=== PATIENT | female | born 1955 | race Caucasian/White ===

== ENCOUNTER 2016-10-24 10:01 | Emergency (ER) | payer OTHER, BC ==
--- NOTE | 2016-10-24 10:21 | EDM.PDOC ---
ED HPI GENERAL MEDICAL PROBLEM - General Chief Complaint: Upper Extremity Injury/Pain Stated Complaint: Fall, Right wrist injury Time Seen by Provider: 10/24/16 10:15 Source of Information: Reports: Patient, Family (,), Old Records ([facility] EMR. No paper hospital chart available.), Other (Friend) - History of Present Illness INITIAL COMMENTS - FREE TEXT/NARRATIVE: Patient was brought to the emergency room via private automobile by her and friend, who have been watching her at home after recent right knee surgery as below. The patient was walking on her own at about 21:45 hours yesterday evening in her home when her right knee gave out, and she landed on her right wrist and forehead with persistent 10/10 sharp right wrist pain and exacerbation of her postoperative right knee pain since that time. The patient did take her oxycodone ER at about 8 a.m. this morning with diazepam taken at 17 :15 hours yesterday prior to the above injury. Caregivers have been placing ice packs on the right wrist with persistent pain as above. The patient denies any chest pain/pressure, heart flutter, dizziness, orthostasis, orthopnea, diaphoresis, paresthesias, recent decreased exercise tolerance, or any other anginal-type symptoms. No recent history of abdominal pain, heartburn, nausea, diarrhea, melena, gross hematochezia, or any food intolerance, including fatty foods, etc.. The patient also denies any recent fever, cough, wheezing, dyspnea , etc.. No history of local signs of infection or drainage from right knee operative site. No history of loss of consciousness, change in mental status, neck/back pain, visual changes, nausea, headaches, paresthesias, neurological deficits, or other complaints or injuries Onset: Sudden Onset Date: 10/23/16 Onset Time: 21:45 Duration: Constant Location: Reports: Upper Extremity, Right, Lower Extremity, Right Quality: Reports: Same as Previous Episode, Sharp Severity: Severe Improves with: Reports: Rest Worsens with: Reports: Movement Context: Reports: Trauma (As above) Associated Symptoms: Denies: Confusion, Chest Pain, Cough, Diaphoresis, Fever/ Chills, Nausea/Vomiting, Seizure, Shortness of Breath, Syncope, Weakness, Other Treatments BIT TAPPER: Reports: Cold Therapy, Other Medication(s) (As above) Right Wrist Pain Score (Numeric/FACES): 10 Right Knee Pain Score (Numeric/FACES): 10 - Related Data Allergies Allergy/AdvReac Type Severity Reaction Status Date / Time adhesive Allergy Other Verified 10/24/16 10:17 brallobarbital Allergy Rash Verified 12/29/15 11:53 codeine Allergy Rash Verified 12/29/15 11:53 furosemide [From Lasix] Allergy Rash Verified 12/29/15 11:53 hydromorphone HCl Allergy Rash Verified 12/29/15 11:53 [From Dilaudid] Latex, Natural Rubber Allergy Rash Verified 10/24/16 10:17 methohexital [From Brevital] Allergy Cardiac Verified 10/24/16 10:17 Arrest morphine Allergy Cardiac Verified 12/29/15 11:53 Arrest pumpkin Allergy Nausea and Verified 10/24/16 10:17 Vomiting squash Allergy Nausea and Verified 10/24/16 10:17 Vomiting suture Allergy Rash Verified 10/24/16 10:17 Home Meds: Home Meds Albuterol [Ventolin HFA] 2 puff INH Q4HR PRN 11/06/14 [History] Gabapentin 1,200 mg PO BEDTIME 11/06/14 [History] Sertraline HCl 75 mg PO DAILY 11/06/14 [History] tiZANidine HCl [Tizanidine HCl] 4 mg PO BID PRN 11/06/14 [History] Apixaban [Eliquis] 2.5 mg PO BID 10/24/16 [History] Ca Carb & Gluc/Mag Ox & Gluc [Calcium Magnesium Caplet] 1 tab PO DAILY 10/24/16 [History] Diazepam [Valium] 5 mg PO Q8HR PRN 10/24/16 [History] Fluticasone Propionate [Flonase] 2 spray NASBOTH DAILY PRN 10/24/16 [History] Melatonin 10 mg PO BEDTIME 10/24/16 [History] hydrOXYzine Pamoate [Hydroxyzine Pamoate] 25 mg PO Q4HR 10/24/16 [History] oxyCODONE 10 mg PO Q4HR 10/24/16 [History] oxyCODONE ER [OxyCONTIN] 20 mg PO Q12HR 10/24/16 [History] Past Medical History HEENT History: Reports: Allergic Rhinitis, Impaired Vision, Other (See Below). Denies: Cataract, Glaucoma, Hard of Hearing, Macular Degeneration, Retinal Detachment Cardiovascular History: Reports: Afib, Arrhythmia, Heart Murmur, High Cholesterol, Hypertension, Syncope, Other (See Below). Denies: Aneurysm, Blood Clots/VTE/DVT, CAD, Heart Failure, NE, PVD Other Cardiovascular History: PVCs, PACs, history of recurrent nonspecific syncope in the 1980s and , dyslipidemia Respiratory History: Reports: Asthma, Intubation, Previous, Sleep Apnea, Other ( See Below). Denies: PE, Pneumothorax, TB Other Respiratory History: Patient has been compliant with her CPAP Gastrointestinal History: Reports: Colon Polyp, GERD, Inflammatory Bowel Disease. Denies: Celiac Disease, Chronic Constipation, Chronic Diarrhea, Gastritis, GI Bleed, Hepatitis, Irritable Bowel Syndrome, Jaundice, PUD CIRCUS TRAINER History: Reports: , Prolapsed Uterus Musculoskeletal History: Reports: Arthritis, Back Pain, Chronic, Osteoarthritis , Osteoporosis Neurological History: Reports: Concussion, Head Trauma, Neuropathy, Peripheral Psychiatric History: Reports: Addiction, Anxiety, Depression, Other (See Below) Other Psychiatric History: Chronic narcotic use - Past Surgical History Female Surgical History: Reports: Breast Implant, Other (See Below) Other Female Surgeries/Procedures: Previous breast implant rupture with replacement Musculoskeletal Surgical History: Reports: Knee Replacement, Other (See Below) Other Musculoskeletal Surgeries/Procedures:: TKA of the right knee on 10/17/16 with apparent previous multiple nonspecific knee surgeries - History Comment History Comment: Patient uncooperative with previous medical history, etc. Social & Family History - Tobacco Use Smoking Status *Q: Former Smoker (quit 16 yrs ago) Years of Tobacco use: 15 Used Tobacco, but Quit: Yes Month Tobacco Last Used: 16 years ago Second Hand Smoke Exposure: No - Alcohol Use Days Per Week of Alcohol Use: 0 Number of Drinks Per Day: 7 Total Drinks Per Week: 0 - Recreational Drug Use Recreational Drug Use: No - Living Situation & Occupation Living situation: Reports: , with Family Occupation: Unemployed Social History Comment: Currently under Workmen's Comp. injury in 2013 Review of Systems - Review of Systems Review Of Systems: See Below Constitutional: Reports: No Symptoms. Denies: Chills, Diaphoresis, Fever, Weakness Eyes: Reports: Glasses. Denies: Blurred Vision, Vision Change Ears: Reports: No Symptoms. Denies: Dizziness, Tinnitus, Bloody Discharge, Clear Discharge Nose: Reports: No Symptoms. Denies: Congestion, Epistaxis, Bloody Discharge Mouth/Throat: Reports: No Symptoms. Denies: Loose Teeth, Difficulty Swallowing Respiratory: Reports: No Symptoms. Denies: Shortness of Breath, Wheezing, Pleuritic Chest Pain, Cough Cardiovascular: Reports: No Symptoms. Denies: Chest Pain, Edema, Irregular Heart Rate, Lightheadedness, Palpitations, Syncope GI/Abdominal: Reports: No Symptoms. Denies: Abdominal Pain, Bloody Stool, Constipation, Decreased Appetite, Diarrhea, Nausea, Vomiting Genitourinary: Reports: No Symptoms. Denies: Dysuria, Hematuria, Incontinence, Painful Urination Musculoskeletal: Reports: Joint Pain (Right knee and right wrist as above), Joint Swelling (Stable postoperative right knee). Denies: Neck Pain, Shoulder Pain, Arm Pain, Back Pain, Leg Pain, Muscle Pain Skin: Reports: Bruising (Stable with current Elliquis), Wound (Stable postoperative right knee pain). Denies: Diaphoresis Neurological: Reports: Numbness (Stable peripheral neuropathy), Paresthesia, Tingling, Difficulty Walking (Secondary to recent knee surgery). Denies: Confusion, Dizziness, Headache, Seizure, Syncope, Weakness, Gait Disturbance Psychiatric: Reports: No Symptoms. Denies: Confusion, Depression, Anxiety, Agitation, Hallucinations Trauma Exam - Physical Exam Exam: See Below Exam Limited By: No Limitations General Appearance: Reports: Alert, WD/WN, Anxious (Moderate), Mild Distress Head: Reports: Atraumatic, Normocephalic. Denies: Ryan's Sign, Facial Swelling, Sinus Tenderness, Facial Tenderness, Raccoon Eyes Neck: Reports: Non-Tender, Full Range of Motion, Normal Alignment, Normal Inspection. Denies: Muscle Spasm Respiratory Exam: Reports: No Respiratory Distress, Lungs Clear, Normal Breath Sounds, No Accessory Muscle Use, Chest Non-Tender. Denies: Pleural Rub, Retractions, Flail Chest Cardiovascular: Reports: Normal Peripheral Pulses, Regular Rate, Rhythm, No Edema, No Gallop, No JVD, No Murmur, No Rub. Denies: Gallop/S3, Gallop/S4, Extra Beats (No extrasystoles at time of exam), Friction Rub GI/Abdominal: Reports: Normal Bowel Sounds, Soft, Non-Tender, No Organomegaly, No Distention, No Abnormal Bruit, No Mass, Pelvis Stable. Denies: Guarding (Female) Exam: Deferred Rectal (Female) Exam: Deferred Back: Reports: Full Range of Motion, Normal Inspection, Non-Tender. Denies: CVA Tenderness (R), CVA Tenderness (L), Muscle Spasm Extremities: No Pedal Edema, Joint Effusion (Moderate normal postoperative right knee effusion with mild surrounding postoperative ecchymosis with no petechiae, etc.), Pain with Movement (Right knee and right wrist with secondary limited range of motion, no significant right wrist deformity, and no snuffbox tenderness), Tenderness (Moderate to severe palpation pain over the right wrist , Moderate palpation pain over the right knee with no direct instability and operative site intact, clean, dry with no discharge, lymphangitis, etc. him in the local warming) Neurologic: Reports: No Motor/Sensory Deficits, Alert, Oriented x 3, Depressed Affect (Moderate to severe with additional moderate to severe anxiety component) Skin: Reports: Warm/Dry, Ecchymosis (As above). Denies: Diaphoresis, Petechiae - Norman Coma Score Best Eye Response (Pradeep): (4) Open Spontaneously Best Verbal Response (Norman): (5) Oriented Best Motor Response (Norman): (6) Obeys Commands Pradeep Total: 15 ED TRAUMA EXTREMITY PROCEDURES - Splinting Right Upper Extremity Splint site: Right wrist Pre-procedure NV status: normal Post-procedure NV status: normal Splint material: other (Short arm palmar splint using 3" x 12" padded fiberglass with additional 2 inch and 4 inch Chon wraps and cotton padding) Applied & form fitted by: provider Provider post-splint application NV check: NV status normal, good position Complications: No Course - Vital Signs Last Recorded V/S: Last Vital Signs Temp 37.2 C 10/24/16 11:21 Pulse 81 10/24/16 11:21 Resp 18 10/24/16 11:21 BP 125/43 L 10/24/16 11:21 Pulse Ox 92 L 10/24/16 11:21 Vital Signs - 24 hr 10/24/16 10/24/16 10/24/16 10:45 10:46 11:21 Temperature [ 37.6 C 37.2 C Oral] Pulse, 98 89 81 Peripheral [ Left Pulse Oximetry] Respiratory 20 20 18 Rate Blood Pressure 150/67 H 119/54 L 125/43 L [Left Upper Arm ] O2 Sat by Pulse 95 92 L Oximetry - Orders/Labs/Meds Orders: Active Orders 24 hr Category Date Time Status Cardiac Monitoring [RC] . DIRECTED Care 10/24/16 11:08 Ordered Knee 1V or 2V Rt [CR] Stat Exams 10/24/16 10:23 Taken Wrist Comp Min 3V Rt [CR] Stat Exams 10/24/16 10:21 Taken Durable Medical Equipment for Discharge [DME for Oth 10/24/16 11:13 Ordered Discharge] [COMM] Routine Durable Medical Equipment for Discharge [DME for Oth 10/24/16 11:14 Ordered Discharge] [COMM] Routine Obtain Past Medical Record [OM.PC] Routine Oth 10/24/16 10:21 Active Labs: None Meds: None - Radiology Interpretation Free Text/Narrative:: X-rays of the right knee, 2 views-portable, shows no evidence of fracture, dislocation, etc. with status post TEP with no evidence of loosening X-rays of the right wrist, complete, shows evidence of a compressed non- angulated and no and displaced distal radial fracture credit administration officer shows normal sinus rhythm in the 80s and 90s with only very occasional PACs noted Departure - Departure Time of Disposition: 11:49 Disposition: Home, Self-Care 01 Condition: good Clinical Impression: Dyslipidemia, PAC (premature atrial contraction), PVC's (premature ventricular contractions), Peptic reflux disease, Mixed anxiety depressive disorder Closed Colles' fracture Qualifiers: Encounter type: initial encounter Laterality: right Qualified Code(s): S52.531A - Colles' fracture of right radius, initial encounter for closed fracture Right knee pain Qualifiers: Chronicity: acute Qualified Code(s): M25.561 - Pain in right knee Hypertension Qualifiers: Hypertension type: essential hypertension Qualified Code(s): I10 - Essential ( primary) hypertension Osteoarthritis Qualifiers: Osteoarthritis location: multiple joints Osteoarthritis type: primary Qualified Code(s): M15.0 - Primary generalized (osteo)arthritis Atrial fibrillation Qualifiers: Atrial fibrillation type: unspecified Qualified Code(s): I48.91 - Unspecified atrial fibrillation Peripheral neuropathy Qualifiers: Peripheral neuropathy type: polyneuropathy, other Qualified Code(s): G62.89 - Other specified polyneuropathies Sleep apnea Qualifiers: Sleep apnea type: unspecified type Qualified Code(s): G47.30 - Sleep apnea, unspecified - Discharge Information Instructions: Cast or Splint Care, [id number], Wrist Fracture Treated With Immobilization, [id number] Forms: ED Department Discharge Additional Instructions: 1. Followup with the PA at the orthopedic clinic at [facility] as already scheduled on 10/31. Recommend repeat x-rays of your right wrist at that time with probable short arm cast placement 2. Tylenol 650 mg by mouth every 4 hours when necessary as directed. Note to the maximum dose of 4000 mg per day, including acetaminophen content in your current narcotic medications 3. Wear your short arm splint at all times with hand elevation, ice packs, etc. as directed. May use sling as needed 4. Continue strict fall precautions with recommended ambulation with assist - Problem List & Annotations (1) Closed Colles' fracture SNOMED Code(s): 625372826 Code(s): S52.539A - COLLES' FRACTURE OF UNSP RADIUS, INIT FOR CLOS FX Status: Acute Priority: High Onset Date: 10/23/16 Annotation/Comment:: Patient placed in a short arm palmar splint as above with close followup appointment with the orthopedic clinic at [facility] with the patient already having an appointment with the PA in that clinic at 11 a.m. on with orthopedic surgical followup scheduled for 11/27/16. The patient recently had right knee surgery as above with this surgery related to a previous Worker's Compensation injury in 2012 by her history. She is stating that she wishes to claim her wrist fracture also as a Worker's Compensation injury, since her right knee gave out causing her to fall as above. Workmen's Compensation forms were completed, although the patient and her were advised that this injury may not qualify for Workmen's Compensation. Splint care, activity restrictions, etc. extensively discussed. The patient is already on significant narcotics with chronic use and probable addiction as above. Continue to observe closely by her regular providers and orthopedic surgeon. Qualifiers: Encounter type: initial encounter Laterality: right Qualified Code(s): S52.531A - Colles' fracture of right radius, initial encounter for closed fracture (2) Right knee pain SNOMED Code(s): 33778583 Code(s): M25.561 - PAIN IN RIGHT KNEE Status: Acute Priority: High Annotation/Comment:: No evidence of significant injury or exacerbation of her chronic postoperative knee pain with surgery one week ago as above. Continue strict fall precautions the patient already having a walker Qualifiers: Chronicity: acute Qualified Code(s): M25.561 - Pain in right knee (3) Osteoarthritis SNOMED Code(s): 018201791 Code(s): M19.90 - UNSPECIFIED OSTEOARTHRITIS, UNSPECIFIED SITE Status: Chronic Priority: Medium Annotation/Comment:: Otherwise stable by history Qualifiers: Osteoarthritis location: multiple joints Osteoarthritis type: primary Qualified Code(s): M15.0 - Primary generalized (osteo)arthritis (4) Atrial fibrillation SNOMED Code(s): 97638222 Code(s): I48.91 - UNSPECIFIED ATRIAL FIBRILLATION Status: Chronic Priority: Medium Annotation/Comment:: No recent chest pain or anginal type symptoms with patient compliant with current Eliquis Qualifiers: Atrial fibrillation type: unspecified Qualified Code(s): I48.91 - Unspecified atrial fibrillation (5) Dyslipidemia SNOMED Code(s): 556530990 Code(s): E78.5 - HYPERLIPIDEMIA, UNSPECIFIED Status: Chronic Priority: Medium Annotation/Comment:: Known dyslipidemia with no current medical therapy (6) Hypertension SNOMED Code(s): 38524873 Code(s): I10 - ESSENTIAL (PRIMARY) HYPERTENSION Status: Chronic Priority : Medium Annotation/Comment:: Blood pressures under good control in the emergency room Qualifiers: Hypertension type: essential hypertension Qualified Code(s): I10 - Essential (primary) hypertension (7) Mixed anxiety depressive disorder SNOMED Code(s): 270629177 Code(s): F41.8 - OTHER SPECIFIED ANXIETY DISORDERS Status: Chronic Priority: Medium Annotation/Comment:: Her anxiety depression disorder is currently under extremely poor control. Continue to observe closely by her providers. Note narcotic addiction as above with additional diazepam use, etc. Patient was extremely confrontational during this visit making her care and previous medical history, etc. somewhat difficult (8) PAC (premature atrial contraction) SNOMED Code(s): 466876682 Code(s): I49.1 - ATRIAL PREMATURE DEPOLARIZATION Status: Chronic Priority : Medium Annotation/Comment:: Very occasional by today's respiratory tech. Note nonsymptomatic (9) PVC's (premature ventricular contractions) SNOMED Code(s): 42669651 Code(s): I49.3 - VENTRICULAR PREMATURE DEPOLARIZATION Status: Chronic Priority: Medium Annotation/Comment:: Nonsymptomatic (10) Peptic reflux disease SNOMED Code(s): 33304179 Code(s): K21.9 - GASTRO-ESOPHAGEAL REFLUX DISEASE WITHOUT ESOPHAGITIS Status: Chronic Priority: Medium Annotation/Comment:: Stable by history (11) Peripheral neuropathy SNOMED Code(s): 315625477 Code(s): G62.9 - POLYNEUROPATHY, UNSPECIFIED Status: Chronic Priority: Medium Annotation/Comment:: Stable by history Qualifiers: Peripheral neuropathy type: polyneuropathy, other Qualified Code(s): G62.89 - Other specified polyneuropathies (12) Sleep apnea SNOMED Code(s): 38545323 Code(s): G47.30 - SLEEP APNEA, UNSPECIFIED Status: Chronic Priority: Medium Annotation/Comment:: No recent fever or bronchitic-type symptoms. Patient has been compliant with her CPAP. Low grade fever today with no evidence of postoperative infection, etc. Observe fever for now Qualifiers: Sleep apnea type: unspecified type Qualified Code(s): G47.30 - Sleep apnea , unspecified (13) Asthma SNOMED Code(s): 977215907 Code(s): J45.909 - UNSPECIFIED ASTHMA, UNCOMPLICATED Status: Chronic Priority: Medium Annotation/Comment:: As above. Possible COPD component with distant history of tobacco use Qualifiers: Asthma severity: mild intermittent Asthma complication type: uncomplicated Qualified Code(s): J45.20 - Mild intermittent asthma, uncomplicated - Problem List Review Problem List Initiated/Reviewed/Updated: Yes - My Orders Last 24 Hours: My Active Orders 10/24/16 10:21 Wrist Comp Min 3V Rt [CR] Stat Obtain Past Medical Record [OM.PC] Routine 10/24/16 10:23 Knee 1V or 2V Rt [CR] Stat 10/24/16 11:08 Cardiac Monitoring [RC] . DIRECTED 10/24/16 11:13 Durable Medical Equipment for Discharge [DME for Discharge] [COMM] Routine 10/24/16 11:14 Durable Medical Equipment for Discharge [DME for Discharge] [COMM] Routine - Assessment/Plan Last 24 Hours: My Active Orders 10/24/16 10:21 Wrist Comp Min 3V Rt [CR] Stat Obtain Past Medical Record [OM.PC] Routine 10/24/16 10:23 Knee 1V or 2V Rt [CR] Stat 10/24/16 11:08 Cardiac Monitoring [RC] . DIRECTED 10/24/16 11:13 Durable Medical Equipment for Discharge [DME for Discharge] [COMM] Routine 10/24/16 11:14 Durable Medical Equipment for Discharge [DME for Discharge] [COMM] Routine Assessment:: As above Plan: As above. Extensive precautions were given to the patient, her , and friend who are in agreement with the treatment plan. See Patient Instructions for further treatment and plan.
[2016-10-24 11:25] VITALS: BP 125/43
== END 2016-10-24 11:49 | disposition home or self-care (01) ==
LOC: LL.ED 10:01
DX: S52.531A Colles' fracture of right radius, initial encounter for closed fracture (principal); I10 Essential (primary) hypertension; I48.91 Unspecified atrial fibrillation; I49.3 Ventricular premature depolarization; I49.1 Atrial premature depolarization; E78.5 Hyperlipidemia, unspecified; M15.0 Primary generalized (osteo)arthritis; G62.89 Other specified polyneuropathies; J45.909 Unspecified asthma, uncomplicated; E78.00 Pure hypercholesterolemia, unspecified; K21.9 Gastro-esophageal reflux disease without esophagitis; F41.8 Other specified anxiety disorders; G47.30 Sleep apnea, unspecified; Z87.891 Personal history of nicotine dependence; Z96.651 Presence of right artificial knee joint; Z88.6 Allergy status to analgesic agent; Z88.5 Allergy status to narcotic agent; Z91.040 Latex allergy status; Z88.8 Allergy status to other drugs, medicaments and biological substances; Z91.018 Allergy to other foods; Z79.899 Other long term (current) drug therapy; W19.XXXA Unspecified fall, initial encounter; Y92.009 Unspecified place in unspecified non-institutional (private) residence as the place of occurrence of the external cause; Y93.01 Activity, walking, marching and hiking
CPT/HCPCS: 29125; 73110-RT; 73560-RT; 99284

== ENCOUNTER 2017-01-04 10:33 | Emergency (ER) | payer BC, MEDICARE, OTHER ==
[2017-01-04 10:37] VITALS: BP 146/67
[2017-01-04] MEDS ORDERED: Pantoprazole 40 MG Vial IVPUSH ONE (10:43)
[2017-01-04] MEDS ORDERED: Famotidine 20 MG/2 ML SDV IVPUSH ONE (10:43)
[2017-01-04] MEDS ORDERED: Ondansetron 4 MG/2 ML SDV IVPUSH ONE (10:43)
[2017-01-04] MEDS ORDERED: Lactated Ringers 1,000 ML IV ONE (10:43)
--- NOTE | 2017-01-04 10:43 | EDM.PDOC ---
ED HPI GENERAL MEDICAL PROBLEM - General Chief Complaint: Abdominal Pain Stated Complaint: Abdominal pain Time Seen by Provider: 01/04/17 10:40 Source of Information: Reports: Patient, Old Records ([facility] chart/EMR) History Limitations: Reports: No Limitations - History of Present Illness INITIAL COMMENTS - FREE TEXT/NARRATIVE: The patient was brought to the emergency room by Demond from physical therapy after today's treatment for evaluation of severe diffuse nonspecific abdominal cramping with history of severe constipation during the last week, which the patient related to her Zocor. She has since discontinued this medication per instructions from her regular provider. The patient did start OTC Colace 4 times per day about one week ago with no improvement, however she did start Miralax about 2 days ago with multiple loose stools with some mild gross hematochezia since that time. She does complain of some severe rectal pain and hemorrhoid problems after onset of the above diarrhea. No other medications taken for taking her abdominal pain. Patient does admit to self disimpaction 2 days ago prior to initiating MiraLAX, however no known acute injury. She rates her discomfort at 10/10. No recent history of other abdominal pain, heartburn, melena, or any food intolerance, including fatty foods, etc., although she did have some nonspecific nausea on arrival. The patient denies any chest pain/ pressure, heart flutter, dizziness, orthostasis, orthopnea, diaphoresis, paresthesias, recent decreased exercise tolerance, or any other anginal-type symptoms. She denies any gross hematuria, colic, or other UTI symptoms. The patient also denies any recent fever, cough, wheezing, dyspnea, etc.. She does admit to not taking her Seroquel for the last several days. Onset: Gradual Duration: Week(s): (As above) Location: Reports: Abdomen, Generalized. Denies: Head, Face, Neck, Back, Pelvis , Upper Extremity, Left, Upper Extremity, Right, Lower Extremity, Left, Lower Extremity, Right, Radiates to Quality: Reports: Pressure, Same as Previous Episode, Sharp Severity: Severe Improves with: Reports: None Worsens with: Reports: None Context: Reports: Other (As above) Associated Symptoms: Reports: Nausea/Vomiting (No emesis). Denies: Confusion, Chest Pain, Cough, Diaphoresis, Fever/Chills, Headaches, Loss of Appetite, Malaise, Shortness of Breath, Syncope, Weakness Treatments [employer]: Reports: Other Medication(s) (As above) Abdominal Pain Score (Numeric/FACES): 10 - Related Data Allergies Allergy/AdvReac Type Severity Reaction Status Date / Time adhesive Allergy Other Verified 01/04/17 12:20 brallobarbital Allergy Rash Verified 01/04/17 12:20 codeine Allergy Rash Verified 01/04/17 12:20 furosemide [From Lasix] Allergy Rash Verified 01/04/17 12:20 hydromorphone HCl Allergy Rash Verified 01/04/17 12:20 [From Dilaudid] Latex, Natural Rubber Allergy Rash Verified 01/04/17 12:20 methohexital [From Brevital] Allergy Cardiac Verified 01/04/17 12:20 Arrest morphine Allergy Cardiac Verified 01/04/17 12:20 Arrest pumpkin Allergy Nausea and Verified 01/04/17 12:20 Vomiting squash Allergy Nausea and Verified 01/04/17 12:20 Vomiting suture Allergy Rash Verified 01/04/17 12:20 Home Meds: Home Meds Albuterol [Ventolin HFA] 2 puff INH Q4HR PRN 11/06/14 [History] Gabapentin 1,200 mg PO BEDTIME 11/06/14 [History] Sertraline HCl 75 mg PO DAILY 11/06/14 [History] tiZANidine HCl [Tizanidine HCl] 4 mg PO BID PRN 11/06/14 [History] Ca Carb & Gluc/Mag Ox & Gluc [Calcium Magnesium Caplet] 1 tab PO DAILY 10/24/16 [History] Diazepam [Valium] 5 mg PO Q8HR PRN 10/24/16 [History] Fluticasone Propionate [Flonase] 2 spray NASBOTH DAILY PRN 10/24/16 [History] Melatonin 10 mg PO BEDTIME 10/24/16 [History] hydrOXYzine Pamoate [Hydroxyzine Pamoate] 25 mg PO Q4HR 10/24/16 [History] Hydrocodone/Acetaminophen [Hydrocodon-Acetaminoph 7.5-325] 1 mg PO Q8HR PRN 08/18 [History] MO/Pet,Wh/Phenylephrine/Shk Lv [Preparation H Oint] 1 gm RECTAL TID PRN [History] Simvastatin [Zocor] 10 mg PO BEDTIME 01/04/17 [History] Past Medical History HEENT History: Reports: Allergic Rhinitis, Impaired Vision, Other (See Below). Denies: Cataract, Glaucoma, Hard of Hearing, Macular Degeneration, Retinal Detachment Other HEENT History: Wears glasses Cardiovascular History: Reports: Afib, Arrhythmia, Heart Murmur, High Cholesterol, Hypertension, Syncope, Other (See Below). Denies: Aneurysm, Blood Clots/VTE/DVT, CAD, Heart Failure, NM, PVD Other Cardiovascular History: PVCs, PACs, history of recurrent nonspecific syncope in the and , dyslipidemia, aortic rupture on 07/10/81 hospital paper chart? Respiratory History: Reports: Asthma, Bronchitis, Recurrent, COPD, Intubation, Previous, Sleep Apnea, Other (See Below). Denies: Intubation, Difficult, PE, Pneumothorax, TB Other Respiratory History: Patient has been compliant with her CPAP Gastrointestinal History: Reports: Chronic Constipation, Colon Polyp, GERD, Hemorrhoids, Inflammatory Bowel Disease, Other (See Below). 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: , Prolapsed Uterus Musculoskeletal History: Reports: Arthritis, Back Pain, Chronic, Fracture, Osteoarthritis, Osteoporosis, Other (See Below) Other Musculoskeletal History: Consultants compensation low back injury on , right distal radial fracture on 10/24/16 Neurological History: Reports: Concussion, Head Trauma, Neuropathy, Peripheral Psychiatric History: Reports: Addiction, Anxiety, Depression, Psych Hospitalization(s), Suicide Attempt, Other (See Below) Other Psychiatric History: Chronic narcotic use, inpatient hospitalization for suicidal ideation on 12/31/12 Endocrine/Metabolic History: Reports: Hypothyroidism, Obesity/BMI 30+, Osteoporosis - Past Surgical History Cardiovascular Surgical History: Reports: AAA Repair, Other (See Below) Other Cardiovascular Surgeries/Procedures: AAA repair in July 1981 Female Surgical History: Reports: Breast Implant, Other (See Below) Other Female Surgeries/Procedures: Previous breast implant rupture with replacement Neurological Surgical History: Reports: Laminectomy, Lumbar Spine, Spinal Fusion , Other (See Below) Other Neurological Surgeries/Procedures: Laminectomy 2 in the lumbar region with status post L4-L5 fusion Musculoskeletal Surgical History: Reports: Knee Replacement, Shoulder Surgery, Other (See Below) Other Musculoskeletal Surgeries/Procedures:: TKA of the right knee on 10/17/16 with apparent previous multiple nonspecific knee surgeries including in the right knee on 03/14/13 - Past Imaging History Past Imaging History: Reports: DEXA Scan (12/22/16, 05/13/12), Mammogram () - History Comment History Comment: Patient somewhat poor historian secondary to her anxiety Social & Family History - Tobacco Use Smoking Status *Q: Former Smoker Years of Tobacco use: 15 Used Tobacco, but Quit: Yes Month Tobacco Last Used: Discontinued cigarette use at about age 45 Smoking Cessation Information Provided To Patient: No Second Hand Smoke Exposure: No Second Hand Smoke Education Provided: No - Alcohol Use Days Per Week of Alcohol Use: 0 Number of Drinks Per Day: 7 Total Drinks Per Week: 0 Alcohol Use in Last Twelve Months: Yes - Recreational Drug Use Recreational Drug Use: No Drug Use in Last 12 Months: No Other Recreational Drug Type: chronic narcotic use - Living Situation & Occupation Living situation: Reports: , with Family Occupation: Unemployed ED ROS GENERAL - Review of Systems Review Of Systems: ROS reveals no pertinent complaints other than HPI. ED EXAM, GI/ABD - Physical Exam Exam: See Below Exam Limited By: No Limitations General Appearance: Alert, WD/WN, No Apparent Distress, Anxious (Moderate), Mild Distress Head: Atraumatic, Normocephalic Neck: Normal Inspection, Supple, Non-Tender, Full Range of Motion. No: Lymphadenopathy (L), Lymphadenopathy (R), Thyromegaly Respiratory/Chest: No Respiratory Distress, Lungs Clear, Normal Breath Sounds, No Accessory Muscle Use, Chest Non-Tender. No: Pleural Rub, Retractions Cardiovascular: Normal Peripheral Pulses, Regular Rate, Rhythm, No Edema, No Gallop, No JVD, No Murmur, No Rub. No: Gallop/S3, Gallop/S4, Friction Rub GI/Abdominal Exam: Normal Bowel Sounds, Soft, Non-Tender (No palpation pain with diffuse nonspecific abdominal cramping), No Organomegaly, No Distention, No Abnormal Bruit, No Mass, Pelvis Stable, Other (Obese). No: Guarding, Rebound (Female) Exam: Deferred Rectal (Female) Exam: Normal Rectal Tone, Heme + Stool, Hemorrhoids (Grade 3 for internal/external hemorrhoids with moderate acute inflammation and mild bleeding), Rectal Fissure (Small ventral wall rectal fissure with minimal spotting determined by rectal speculum exam), Tenderness (Secondary to rectal fissure but no Micheal space tenderness), Other (Otherwise brown stool with minimal stool in rectal vault). No: Fecal Impaction, Mass, Perirectal Abscess Back Exam: Normal Inspection, Full Range of Motion. No: CVA Tenderness (L), CVA Tenderness (R), Muscle Spasm Extremities: Normal Inspection, Normal Range of Motion, Non-Tender, No Pedal Edema, Normal Capillary Refill. No: Jarek's Sign Neurological: Alert, Oriented, CN II-XII Intact, Normal Cognition, Normal Gait, No Motor/Sensory Deficits Psychiatric: Anxious (Moderate), Depressed Mood (Moderate with adequate eye contact) Skin Exam: Warm, Dry, Intact, Normal Color, No Rash, Tattoo(s) (Multiple). No: Diaphoretic Lymphatic: No Adenopathy Course - Vital Signs Last Recorded V/S: Last Vital Signs Temp 36.8 C 01/04/17 10:36 Pulse 91 01/04/17 10:36 Resp 16 01/04/17 10:36 BP 146/67 H 01/04/17 10:36 Pulse Ox 97 01/04/17 10:36 Vital Signs - 24 hr 01/04/17 10:36 Temperature [ 36.8 C Oral] Pulse, 91 Peripheral [ Pulse Oximetry] Respiratory 16 Rate Blood Pressure 146/67 H [Left Arm] O2 Sat by Pulse 97 Oximetry - Orders/Labs/Meds Orders: Active Orders 24 hr Category Date Time Status Peripheral IV Care [RC] . DIRECTED Care 01/04/17 10:44 Active Nothing Per Oral Diet [DIET] Diet 01/04/17 Breakfast Active Abdomen Series w Chest 1V [CR] Stat Exams 01/04/17 10:44 Taken CULTURE BLOOD [BC] Stat Lab 01/04/17 10:50 Received CULTURE BLOOD [BC] Stat Lab 01/04/17 11:00 Received Sodium Chloride 0.9% [Saline Flush] Med 01/04/17 10:43 Active 10 ml FLUSH ASDIRECTED PRN Blood Culture x2 Reflex Set [OM.PC] Urgent Oth 01/04/17 10:44 Ordered Obtain Past Medical Record [OM.PC] Urgent Oth 01/04/17 10:44 Active Peripheral IV Insertion Adult [OM.PC] Stat Oth 01/04/17 10:44 Ordered Resuscitation Status Stat Resus Stat 01/04/17 10:43 Ordered Medication Orders Sodium Chloride (Saline Flush) 10 ml FLUSH ASDIRECTED PRN PRN Reason: Keep Vein Open Last Admin: 01/04/17 11:48 Dose: 10 ml Admin: 01/04/17 11:44 Dose: 10 ml Admin: 01/04/17 11:42 Dose: 10 ml Labs: Laboratory Tests 01/04/17 01/04/17 01/04/17 Range/Units 10:50 10:50 10:50 WBC 7.6 (4.0-10.2) K/uL RBC 3.60 L (3.77-5.09) M/uL Hgb 11.0 L D (11.7-15.5) g/dL Hct 33.6 L (34.0-46.0) % MCV 93.3 (84.0-98.0) fL MCH 30.6 (28.2-33.3) pg MCHC 32.7 (31.7-36.0) g/dL RDW 16.4 H (11.2-14.1) % Plt Count 227 D (150-350) K/uL Neut % (Auto) 72.9 (45.0-80.0) % Lymph % (Auto) 16.6 (10.0-50.0) % Jay % (Auto) 8.8 (2.0-14.0) % Eos % (Auto) 1.2 (0.0-5.0) % Baso % (Auto) 0.5 (0.0-2.0) % Neut # (Auto) 5.53 (1.40-7.00) K/uL Lymph # (Auto) 1.26 (0.50-3.50) K/uL Jay # (Auto) 0.67 (0.00-1.00) K/uL Eos # (Auto) 0.09 (0.00-0.50) K/uL Baso # (Auto) 0.04 (0.00-0.20) K/uL PT 10.6 (9.8-11.7) SEC INR 1.0 APTT 27.0 (23.5-30.0) SEC Sodium (136-145) mmol/L Potassium (3.5-5.1) mmol/L Chloride (98-107) mmol/L Carbon Dioxide (21.0-32.0) mmol/L BUN (7-18) mg/dL Creatinine (0.51-1.17) mg/dL Est Cr Clr Drug Dosing Estimated GFR (MDRD) mL/min Glucose (74-106) mg/dL Lactic Acid (0.4-2.0) mmol/L Uric Acid (2.6-7.2) mg/dL Calcium (8.5-10.1) mg/dL Magnesium (1.8-2.4) mg/dL Total Bilirubin (0.2-1.0) mg/dL AST (15-37) U/L ALT (12-78) U/L Alkaline Phosphatase (46-116) IU/L Total Protein (6.4-8.2) g/dL Albumin (3.4-5.0) g/dL Amylase 21 L (25-115) U/L Lipase (73-393) U/L 01/04/17 01/04/17 Range/Units 10:50 10:50 WBC (4.0-10.2) K/uL RBC (3.77-5.09) M/uL Hgb (11.7-15.5) g/dL Hct (34.0-46.0) % MCV (84.0-98.0) fL MCH (28.2-33.3) pg MCHC (31.7-36.0) g/dL RDW (11.2-14.1) % Plt Count (150-350) K/uL Neut % (Auto) (45.0-80.0) % Lymph % (Auto) (10.0-50.0) % Jay % (Auto) (2.0-14.0) % Eos % (Auto) (0.0-5.0) % Baso % (Auto) (0.0-2.0) % Neut # (Auto) (1.40-7.00) K/uL Lymph # (Auto) (0.50-3.50) K/uL Jay # (Auto) (0.00-1.00) K/uL Eos # (Auto) (0.00-0.50) K/uL Baso # (Auto) (0.00-0.20) K/uL PT (9.8-11.7) SEC INR APTT (23.5-30.0) SEC Sodium 140 (136-145) mmol/L Potassium 3.8 (3.5-5.1) mmol/L Chloride 104 (98-107) mmol/L Carbon Dioxide 27.1 (21.0-32.0) mmol/L BUN 9 (7-18) mg/dL Creatinine 0.81 (0.51-1.17) mg/dL Est Cr Clr Drug Dosing TNP Estimated GFR (MDRD) > 60 mL/min Glucose 117 H (74-106) mg/dL Lactic Acid 0.8 (0.4-2.0) mmol/L Uric Acid 2.3 L (2.6-7.2) mg/dL Calcium 8.4 L (8.5-10.1) mg/dL Magnesium 2.2 (1.8-2.4) mg/dL Total Bilirubin 0.7 (0.2-1.0) mg/dL AST 20 (15-37) U/L ALT 17 (12-78) U/L Alkaline Phosphatase 108 (46-116) IU/L Total Protein 6.9 (6.4-8.2) g/dL Albumin 3.4 (3.4-5.0) g/dL Amylase (25-115) U/L Lipase 101 (73-393) U/L Microbiology 01/04/17 12:00 Stool Occult Blood (ELMA) - Final Stool / Feces Hemoccult positive secondary to mild gross hematochezia as above Meds: Medications Generic Name Dose Route Start Last Admin Trade Name Freq PRN Reason Stop Dose Admin Sodium Chloride 10 ml 01/04/17 10:43 01/04/17 11:48 Saline Flush FLUSH 10 ml ASDIRECTED PRN Administration Keep Vein Open Discontinued Medications Generic Name Dose Route Start Last Admin Trade Name Freq PRN Reason Stop Dose Admin Famotidine 40 mg 01/04/17 10:43 01/04/17 11:42 Pepcid IVPUSH 01/04/17 10:44 40 mg ONETIME ONE Administration Lactated Ringer's 1,000 mls @ 999 mls/hr 01/04/17 10:43 01/04/17 11:50 Ringers, Lactated IV 01/04/17 11:43 999 mls/hr .BOLUS ONE Administration Ceftriaxone Sodium 1 gm/ 100 mls @ 200 mls/hr 01/04/17 10:45 01/04/17 12:00 Sodium Chloride IV Not Given Q12H ADRIAN Metronidazole 500 mg/ Premix 100 mls @ 100 mls/hr 01/04/17 10:45 01/04/17 12: 00 IV Not Given Q8H ADRIAN Lidocaine HCl 15 ml 01/04/17 11:22 01/04/17 12:05 Xylocaine 2% Viscous MUCMEM 01/04/17 11:23 15 ml ASDIRECTED ONE Administration Ondansetron HCl 4 mg 01/04/17 10:43 01/04/17 11:42 Zofran IVPUSH 01/04/17 10:44 4 mg ONETIME ONE Administration Pantoprazole Sodium 40 mg 01/04/17 10:43 01/04/17 11:42 Protonix Iv IVPUSH 01/04/17 10:44 40 mg ONETIME ONE Administration - Radiology Interpretation Free Text/Narrative:: Acute abdominal x-ray showed evidence of mild to moderate pulmonary obstructive disease with only minimal increased bowel gaseous pattern and stool with no free air, fluid levels, CHF, cardiomegaly, pulmonary infiltrates, pneumothorax, etc.. Moderate osteoarthritic changes with status post L4-5 spinal fusion. Mild prominence of the proximal aortic arch Departure - Departure Time of Disposition: 13:10 Disposition: Home, Self-Care 01 Condition: Good Clinical Impression: Rectal tear, Peptic reflux disease, Dyslipidemia, Mixed anxiety depressive disorder Abdominal pain Qualifiers: Abdominal location: generalized Qualified Code(s): R10.84 - Generalized abdominal pain Constipation Qualifiers: Constipation type: chronic idiopathic constipation Qualified Code(s): K59.04 - Chronic idiopathic constipation Hemorrhoids Qualifiers: Hemorrhoid type: third degree Qualified Code(s): K64.2 - Third degree hemorrhoids Atrial fibrillation Qualifiers: Atrial fibrillation type: chronic Qualified Code(s): I48.2 - Chronic atrial fibrillation Osteoarthritis Qualifiers: Osteoarthritis location: multiple joints Osteoarthritis type: primary Qualified Code(s): M15.0 - Primary generalized (osteo)arthritis Hypertension Qualifiers: Hypertension type: essential hypertension Qualified Code(s): I10 - Essential ( primary) hypertension Asthma Qualifiers: Asthma severity: mild intermittent Asthma complication type: uncomplicated Qualified Code(s): J45.20 - Mild intermittent asthma, uncomplicated Anemia Qualifiers: Anemia type: unspecified type Qualified Code(s): D64.9 - Anemia, unspecified - Discharge Information Instructions: Constipation, Adult, [id number], Abdominal Pain, Adult, Easy-to -Read, Anal Fissure, Adult, [id number] Referrals: Lucy Mathews PA-C [Primary Care Provider] - Forms: ED Department Discharge Additional Instructions: 1. Followup with your regular provider in 7-10 days as directed. 2. Discuss possible surgical referral for hemorrhoidectomy, colonoscopy, etc. with your regular provider at follow-up 3. Marion diet including encouragement of oral fluids such as sports drinks, etc. for 24-48 hours as directed. Advance to strict low-fat, low-cholesterol, diverticulosis, high fiber diet as tolerated thereafter. 4. Strict compliance with all medical therapy and never discontinue or stop it medications on your own. 5. Attempt to discontinue all narcotic pain medications SARAY, since this definitely aggravates your constipation - Problem List & Annotations (1) Rectal tear SNOMED Code(s): 91548058 Code(s): K63.1 - PERFORATION OF INTESTINE (NONTRAUMATIC) Status: Acute Priority: High Current Visit: Yes Onset Date: ~01/04/17 Annotation/Comment :: Small rectal tear with minimal hematochezia secondary to recent self disimpaction and constipation. Bowel hygiene, high fiber diet, etc. discussed. Consider possible regular scheduled MiraLAX depending on her symptoms and clinical course (2) Constipation SNOMED Code(s): 95458288 Code(s): K59.00 - CONSTIPATION, UNSPECIFIED Status: Acute Priority: High Current Visit: Yes Onset Date: ~01/04/17 Annotation/Comment:: As above Qualifiers: Constipation type: chronic idiopathic constipation Qualified Code(s): K59.04 - Chronic idiopathic constipation (3) Abdominal pain SNOMED Code(s): 34214137 Code(s): R10.9 - UNSPECIFIED ABDOMINAL PAIN Status: Acute Priority: High Current Visit: Yes Onset Date: 01/04/17 Annotation/Comment:: Nonspecific generalized abdominal cramping with majority of her symptoms secondary to her rectal discomfort. IV Rocephin and IV Flagyl orders were discontinued with no evidence of significant abdominal findings by clinical exam. Also no current UTI symptoms with UA orders discontinued Qualifiers: Abdominal location: generalized Qualified Code(s): R10.84 - Generalized abdominal pain (4) Hemorrhoids SNOMED Code(s): 98819945 Code(s): K64.9 - UNSPECIFIED HEMORRHOIDS Status: Acute Priority: Medium Current Visit: Yes Onset Date: ~01/04/17 Annotation/Comment:: As above. May need hemorrhoidectomy. Possible referral to surgeon by regular provider as per discharge instructions. Patient may also need a repeat colonoscopy depending on her clinical course Qualifiers: Hemorrhoid type: third degree Qualified Code(s): K64.2 - Third degree hemorrhoids (5) Hypertension SNOMED Code(s): 62261556 Code(s): I10 - ESSENTIAL (PRIMARY) HYPERTENSION Status: Chronic Priority : Medium Current Visit: Yes Annotation/Comment:: Blood pressures under good control in the emergency room despite her anxiety. Continue to observe closely by her regular providers Qualifiers: Hypertension type: essential hypertension Qualified Code(s): I10 - Essential (primary) hypertension (6) Osteoarthritis SNOMED Code(s): 604635770 Code(s): M19.90 - UNSPECIFIED OSTEOARTHRITIS, UNSPECIFIED SITE Status: Chronic Priority: Medium Current Visit: Yes Annotation/Comment:: Otherwise stable by history current physical therapy for chronic bilateral knee pain Qualifiers: Osteoarthritis location: multiple joints Osteoarthritis type: primary Qualified Code(s): M15.0 - Primary generalized (osteo)arthritis (7) Dyslipidemia SNOMED Code(s): 947754063 Code(s): E78.5 - HYPERLIPIDEMIA, UNSPECIFIED Status: Chronic Priority: Medium Current Visit: Yes Annotation/Comment:: Known dyslipidemia with recent intolerance to Zocor secondary to constipation, although this may be a chronic problem? Continue to observe closely through her regular provider (8) Peptic reflux disease SNOMED Code(s): 81893815 Code(s): K21.9 - GASTRO-ESOPHAGEAL REFLUX DISEASE WITHOUT ESOPHAGITIS Status: Chronic Priority: Medium Current Visit: Yes Annotation/Comment:: Stable by history. IV Pepcid and IV Protonix given as GI prophylaxis in the emergency room (9) Mixed anxiety depressive disorder SNOMED Code(s): 653873324 Code(s): F41.8 - OTHER SPECIFIED ANXIETY DISORDERS Status: Chronic Priority: Medium Current Visit: Yes Annotation/Comment:: Her anxiety depression disorder is currently under extremely poor control. Continue to observe closely by her providers. Note narcotic addiction as above with additional diazepam use, etc. use in the past. She denies dependency on her narcotics and does not wish to accept that her constipation is likely related to these medications. Medication compliance strongly encouraged with patient not taking her Seroquel for the last several days with previous history of distant suicidal ideation and inpatient care (10) Asthma SNOMED Code(s): 433489144 Code(s): J45.909 - UNSPECIFIED ASTHMA, UNCOMPLICATED Status: Chronic Priority: Medium Current Visit: Yes Annotation/Comment:: As above. Possible COPD component with distant history of tobacco use. No recent fever or bronchitic type symptoms Qualifiers: Asthma severity: mild intermittent Asthma complication type: uncomplicated Qualified Code(s): J45.20 - Mild intermittent asthma, uncomplicated - Problem List Review Problem List Initiated/Reviewed/Updated: Yes - My Orders Last 24 Hours: My Active Orders 01/04/17 10:43 Sodium Chloride 0.9% [Saline Flush] 10 ml FLUSH ASDIRECTED PRN Resuscitation Status Stat 01/04/17 10:44 Peripheral IV Care [RC] . DIRECTED Abdomen Series w Chest 1V [CR] Stat Blood Culture x2 Reflex Set [OM.PC] Urgent Obtain Past Medical Record [OM.PC] Urgent Peripheral IV Insertion Adult [OM.PC] Stat 01/04/17 10:50 CULTURE BLOOD [BC] Stat 01/04/17 11:00 CULTURE BLOOD [BC] Stat 01/04/17 Breakfast Nothing Per Oral Diet [DIET] - Assessment/Plan Last 24 Hours: My Active Orders 01/04/17 10:43 Sodium Chloride 0.9% [Saline Flush] 10 ml FLUSH ASDIRECTED PRN Resuscitation Status Stat 01/04/17 10:44 Peripheral IV Care [RC] . DIRECTED Abdomen Series w Chest 1V [CR] Stat Blood Culture x2 Reflex Set [OM.PC] Urgent Obtain Past Medical Record [OM.PC] Urgent Peripheral IV Insertion Adult [OM.PC] Stat 01/04/17 10:50 CULTURE BLOOD [BC] Stat 01/04/17 11:00 CULTURE BLOOD [BC] Stat 01/04/17 Breakfast Nothing Per Oral Diet [DIET] Assessment:: As above Plan: As above. Extensive precautions were given to the patient, who is in agreement with the treatment plan. See Patient Instructions for further treatment and plan.
[2017-01-04] MEDS ORDERED: metroNIDAZOLE/Normal Saline 500 MG in Premix Bag 1 BAG IV SCH (10:45)
[2017-01-04] MEDS ORDERED: cefTRIAXone 1 GM in Sodium Chloride 0.9% 100 ML IV SCH (10:45)
[2017-01-04 11:14] LABS: CHLORIDE,CL 104 mmol/L (98-107); SODIUM,NA 140 mmol/L (136-145)
[2017-01-04] MEDS ORDERED: Lidocaine 2% Viscous Solution 15 ML Cup MUCMEM ONE (11:22)
[2017-01-04] MEDS: Sodium Chloride 0.9% 10 ML Syringe FLUSH PRN ×3 (11:42→11:48)
== END 2017-01-04 13:10 | disposition home or self-care (01) ==
LOC: LL.ED 10:33
DX: S36.63XA Laceration of rectum, initial encounter (principal); K59.04 Chronic idiopathic constipation; K21.9 Gastro-esophageal reflux disease without esophagitis; E78.5 Hyperlipidemia, unspecified; F41.8 Other specified anxiety disorders; K64.2 Third degree hemorrhoids; I48.2 Chronic atrial fibrillation; M15.0 Primary generalized (osteo)arthritis; I10 Essential (primary) hypertension; J45.20 Mild intermittent asthma, uncomplicated; D64.9 Anemia, unspecified; J44.9 Chronic obstructive pulmonary disease, unspecified; M19.90 Unspecified osteoarthritis, unspecified site; M81.0 Age-related osteoporosis without current pathological fracture; E03.9 Hypothyroidism, unspecified; E66.9 Obesity, unspecified; Z68.25 Body mass index [BMI] 25.0-25.9, adult; Z96.659 Presence of unspecified artificial knee joint; Z98.890 Other specified postprocedural states; Z87.891 Personal history of nicotine dependence; Z79.899 Other long term (current) drug therapy; Z88.5 Allergy status to narcotic agent; Z88.8 Allergy status to other drugs, medicaments and biological substances; Z91.018 Allergy to other foods; Z91.040 Latex allergy status
CPT/HCPCS: 36415; 74022; 80053; 82150; 82272; 83605; 83690; 83735; 84550; 85025; 85610; 85730; 87040; 96365; 96375; 99284; A9270; C9113; J2405; J7050; J7120; S0028

== ENCOUNTER 2017-01-25 08:30 | Day surgery (SDC) | payer BC, MEDICARE ==
[~2017-01-25 08:30] MED LIST: Lactated Ringers 1,000 ML IV SCH; Sodium Chloride 0.9% 10 ML Syringe FLUSH PRN
--- NOTE | 2017-01-25 09:35 | PCM.HPR ---
H & P Addendum review - H & P Addendum Review Date of Original H & P: 01/11/17 Date Reviewed: 01/25/17 Time Reviewed: 09:34 Patient was Examined: No Changes
[2017-01-25] MEDS ORDERED: Midazolam 1 MG/ML 2 ML SDV ONE ×2 (09:44→09:45)
[2017-01-25] MEDS ORDERED: Propofol 200 MG/20 ML SDV ONE ×3 (09:45→12:54)
--- NOTE | 2017-01-25 10:27 | PCM.OPNOTE ---
- General Post-Op/Procedure Note Date of Surgery/Procedure: 01/25/17 Operative Procedure(s): Colonoscopy with bx and polypectomy Findings: Rectal Tumor Trans colon polyp Pre Op Diagnosis: Rectal Bleeding and pain Post-Op Diagnosis: Same Anesthesia Technique: MAC Primary Surgeon: Arnaldo Harrington Anesthesia Provider: Carmen Devries EBCollin in mLs: 2 Complications: None Condition: Good
[2017-01-25 14:18] VITALS: BP 127/76
--- NOTE | 2017-01-25 15:04 | OR ---
Date of Procedure: 01/25/2017 PREOPERATIVE DIAGNOSES: 1. Perianal pain. 2. Hematochezia. POSTOPERATIVE DIAGNOSES: 1. Rectal tumor. 2. Transverse colon polyp. PROCEDURE: Colonoscopy with polypectomy and biopsies. ANESTHESIA: IV sedation. PROCEDURE: The patient was brought to the procedure room, where she was placed on her left side and IV sedation administered. Digital rectal exam was performed which was normal. Colonoscope was inserted and retroflexed. Internal hemorrhoids appeared to be normal. There was minimal oozing from one spot from scope trauma which was not felt to be significant. In the mid rectum at 10 cm was a 1/3rd circumferential colon tumor, very suspicious for malignancy. There appears to be some central ulceration and tumor extends for 2 cm in length. This appears to be the obvious source of her bleeding. The scope was then advanced to the level of the cecum with some difficulty getting through a tortuous colon requiring pressure on the abdomen. I was able to visualize the cecum which was confirmed by identifying the appendiceal lumen and ileocecal valve. Prep was good and surfaces were well visualized. Upon withdrawing the scope, the ascending colon was normal. In the proximal transverse colon was a 6 mm sessile polyp, removed with the hot biopsy forceps. The remaining transverse, descending, and sigmoid colon were normal. The rectum has the malignant-appearing tumor as described above. Photographs were taken. Several biopsies were also taken. Air was removed and the scope was withdrawn. The patient tolerated the procedure well and returned to recovery in stable condition. I will have the patient decide who her primary provider is and she will need referral to Medical and Radiation Oncology for ongoing management. GEMMA SCHWAB MD /[id number]
== END 2017-01-25 11:45 | disposition home or self-care (01) ==
LOC: LL.SDS 08:30
PROVIDERS: ATTEND Surgery
DX: C20 Malignant neoplasm of rectum (principal); D12.3 Benign neoplasm of transverse colon; Z86.010 Personal history of colon polyps
CPT/HCPCS: 45380; 45384; J2250; J2704; J7120

== ENCOUNTER 2018-07-02 14:16 | Emergency (ER) | payer BC, MEDICARE ==
[2018-07-02 15:11] LABS: CHLORIDE,CL 97 mmol/L (98-107); SODIUM,NA 138 mmol/L (136-145)
[2018-07-02] MEDS ORDERED: Iopamidol 612 MG/ML 100 ML Bottle IVPUSH ONE ×2 (15:17→19:01)
[2018-07-02 15:42] VITALS: BP 144/81
[2018-07-02] MEDS ORDERED: Ondansetron 4 MG Tab.DIS PO ONE (16:27)
[2018-07-02] MEDS ORDERED: Potassium Chloride 20 MEQ Tab.ER PO ONE ×2 (16:27→19:30)
[2018-07-02] MEDS ORDERED: Magnesium Oxide 400 MG Tab PO ONE (17:46)
[2018-07-02] MEDS ORDERED: Sodium Chloride 0.9% 10 ML Syringe FLUSH PRN (18:02)
[2018-07-02] MEDS ORDERED: Sodium Chloride 0.9% 1,000 ML IV ONE (18:03)
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
[2018-07-02] MEDS ORDERED: Sodium Chloride 0.9% 10 ML Syringe FLUSH ONE (20:00)
[2018-07-02] MEDS ORDERED: metroNIDAZOLE 500 MG Tab PO ONE (21:44)
== END 2018-07-02 22:02 | disposition home or self-care (01) ==
LOC: LL.ED 14:16
DX: K85.90 Acute pancreatitis without necrosis or infection, unspecified (principal); K52.9 Noninfective gastroenteritis and colitis, unspecified; E87.6 Hypokalemia; E83.42 Hypomagnesemia; Z79.899 Other long term (current) drug therapy; Z91.018 Allergy to other foods
CPT/HCPCS: 36415; 74022; 74177; 76700; 80053; 81001; 82150; 82272; 83605; 83690; 83735; 84132; 85025; 87045; 87046; 87338; 87493; 96361; 96365; 99285; A9270-GY; J3475; J7030; Q9967

== ENCOUNTER 2019-01-08 10:40 | Emergency (ER) | payer BC, MEDICARE ==
[2019-01-08] MEDS ORDERED: Sodium Chloride 0.9% 10 ML Syringe FLUSH PRN (11:03)
--- NOTE | 2019-01-08 11:03 | EDM.PDOC ---
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 scheduling further workup at that time including repeat colonoscopy, repeat C. difficile stool toxin specimen, etc. 3. Work excuse- See Form 4. Immediately after this visit verify that your cellular telephone's voicemail has been activated and is empty. Also verify that your home telephone 's answering machine is operating properly and has space to receive messages. Note that it is sometimes necessary for us to be able to contact you at a later date to discuss your medical care. 5. Please remember that we are ALWAYS here for you and want to answer any questions you may have. Feel free to call the hospital any time and we call you back SARAY. 6. Discuss with your regular provider at follow-up your concurrent use of alprazolam and diazepam, which is not normally recommended. - Problem List & Annotations (1) Abdominal pain SNOMED Code(s): 72002974 Code(s): R10.9 - UNSPECIFIED ABDOMINAL PAIN Status: Acute Priority: High Current Visit: Yes Onset Date: 01/04/17 Annotation/Comment:: Nonspecific right lower quadrant abdominal/pelvic discomfort of unknown etiology. Various therapeutic options were discussed with the patient, who did request abdominal and pelvic ultrasounds be conducted in this facility today. Note preliminary verbal reports from data communications technician as above. She did have a normal CT scan of the abdomen and pelvis on 07/02/18 with normal pancreas at that time despite suspicion of possible pancreatitis during that visit. Amylase and lipase levels are normal today. Note previous history of chronic diarrhea, C. difficile colitis, colon cancer, and endometriosis with multiple previous laparotomies and laparoscopic evaluations and likelihood of additional abdominal adhesions. MRI of the abdomen and pelvis is recommended and will be conducted in this facility on 01/13/19. Close follow-up by regular provider as per discharge instructions. Consider possible repeat colonoscopy, C. difficile toxin evaluation, etc. with previous negative H. pylori evaluation in June 2018. Note patient refused recommended IV Reglan therapy during this ER evaluation. Qualifiers: Abdominal location: right lower quadrant Qualified Code(s): R10.31 - Right lower quadrant pain (2) Asthma SNOMED Code(s): 485010066 Code(s): J45.909 - UNSPECIFIED ASTHMA, UNCOMPLICATED Status: Chronic Priority: Medium Current Visit: Yes Annotation/Comment:: Possible COPD component with distant history of tobacco use. Recent fever as above, however no bronchitic type symptoms. Consider PFTs depending on her clinical course. Note history of allergic rhinitis. Qualifiers: Asthma severity: mild Asthma persistence: intermittent Asthma complication type: uncomplicated Qualified Code(s): J45.20 - Mild intermittent asthma, uncomplicated (3) Osteoarthritis SNOMED Code(s): 193256799 Code(s): M19.90 - UNSPECIFIED OSTEOARTHRITIS, UNSPECIFIED SITE Status: Chronic Priority: Medium Current Visit: Yes Annotation/Comment:: Stable by patient history. Qualifiers: Osteoarthritis location: multiple joints Osteoarthritis type: primary Qualified Code(s): M15.0 - Primary generalized (osteo)arthritis (4) Hypomagnesemia SNOMED Code(s): 343968614 Code(s): E83.42 - HYPOMAGNESEMIA Status: Acute Priority: Medium Current Visit: Yes Annotation/Comment:: Note chronic diarrhea. Consider magnesium oxide therapy, however note history of chronic diarrhea as above. (5) Hypertension SNOMED Code(s): 24511351 Code(s): I10 - ESSENTIAL (PRIMARY) HYPERTENSION Status: Chronic Priority : Medium Current Visit: Yes Annotation/Comment:: Blood pressures under good control in the emergency room despite her anxiety. Continue to observe closely by her regular providers Qualifiers: Hypertension type: essential hypertension Qualified Code(s): I10 - Essential (primary) hypertension (6) Mixed anxiety depressive disorder SNOMED Code(s): 200783918 Code(s): F41.8 - OTHER SPECIFIED ANXIETY DISORDERS Status: Chronic Priority: Medium Current Visit: Yes Annotation/Comment:: Moderate control based on today's evaluation. Note history of chronic narcotic use and concomitant Xanax and Valium use. Continue to observe closely by regular provider. Note previous history of borderline hypothyroidism with normal TSH today. (7) Peptic reflux disease SNOMED Code(s): 965530341 Code(s): K21.9 - GASTRO-ESOPHAGEAL REFLUX DISEASE WITHOUT ESOPHAGITIS Status: Chronic Priority: Medium Current Visit: Yes Annotation/Comment:: Stable by history with current medical therapy. (8) Sleep apnea SNOMED Code(s): 81623346 Code(s): G47.30 - SLEEP APNEA, UNSPECIFIED Status: Chronic Priority: Medium Current Visit: Yes Annotation/Comment:: Recent fever yesterday evening as per history of present illness, however not currently and no recent history of or bronchitic-type symptoms. Patient has been compliant with her CPAP. Qualifiers: Sleep apnea type: unspecified type Qualified Code(s): G47.30 - Sleep apnea , unspecified (9) Dyslipidemia SNOMED Code(s): 158508317 Code(s): E78.5 - HYPERLIPIDEMIA, UNSPECIFIED Status: Chronic Priority: Medium Current Visit: Yes Annotation/Comment:: Known dyslipidemia and fatty liver with previous intolerance to Zocor secondary to constipation, although this is not an issue at this time. No current medical therapy. Note patient has been on a strict diet with intentional 20 pound during the last 23 months. Continue to observe closely through her regular provider. - Problem List Review Problem List Initiated/Reviewed/Updated: Yes - My Orders Last 24 Hours: My Active Orders 01/08/19 11:03 Sodium Chloride 0.9% [Saline Flush] 10 ml FLUSH ASDIRECTED PRN Resuscitation Status Stat 01/08/19 11:04 Peripheral IV Care [RC] . DIRECTED Abdomen Series w Chest 1V [CR] Stat CULTURE URINE [RM] Stat Obtain Past Medical Record [OM.PC] Urgent Peripheral IV Insertion Adult [OM.PC] Stat 01/08/19 12:03 Abdomen Comp [US] Stat 01/08/19 12:06 Pelvis Non OB Comp [US] Stat 01/08/19 15:20 Transvaginal Non OB [US] Routine 01/08/19 Breakfast Nothing Per Oral Diet [DIET] - Assessment/Plan Last 24 Hours: My Active Orders 01/08/19 11:03 Sodium Chloride 0.9% [Saline Flush] 10 ml FLUSH ASDIRECTED PRN Resuscitation Status Stat 01/08/19 11:04 Peripheral IV Care [RC] . DIRECTED Abdomen Series w Chest 1V [CR] Stat CULTURE URINE [RM] Stat Obtain Past Medical Record [OM.PC] Urgent Peripheral IV Insertion Adult [OM.PC] Stat 01/08/19 12:03 Abdomen Comp [US] Stat 01/08/19 12:06 Pelvis Non OB Comp [US] Stat 01/08/19 15:20 Transvaginal Non OB [US] Routine 01/08/19 Breakfast Nothing Per Oral Diet [DIET] Assessment:: As above Plan: As above. Extensive precautions were given to the patient, who is in agreement with the treatment plan. See Patient Instructions for further treatment and plan.
[2019-01-08] MEDS ORDERED: Metoclopramide 10 MG/2 ML SDV IVPUSH ONE (11:55)
[2019-01-08 16:54] VITALS: BP 123/71; PULSE 65
== END 2019-01-08 14:20 | disposition home or self-care (01) ==
LOC: LL.ED 10:40
DX: R10.31 Right lower quadrant pain (principal); J45.20 Mild intermittent asthma, uncomplicated; M15.0 Primary generalized (osteo)arthritis; F41.8 Other specified anxiety disorders; K21.9 Gastro-esophageal reflux disease without esophagitis; E83.42 Hypomagnesemia; E03.9 Hypothyroidism, unspecified; I48.91 Unspecified atrial fibrillation; I10 Essential (primary) hypertension; E78.00 Pure hypercholesterolemia, unspecified; Z87.891 Personal history of nicotine dependence; Z79.899 Other long term (current) drug therapy; Z88.5 Allergy status to narcotic agent; Z88.8 Allergy status to other drugs, medicaments and biological substances; Z91.09 Other allergy status, other than to drugs and biological substances
CPT/HCPCS: 36000; 36415; 74022; 76700; 76830; 76856; 80053; 81001; 82150; 82272; 83605; 83690; 83735; 84443; 84550; 85025; 85610; 85730; 87086; 99284-25